=== PATIENT | female | born 1955 | race Two or more races ===

== ENCOUNTER 2018-09-07 15:50 | Inpatient (IN) | payer BC, OTHER ==
[~2018-09-07] VITALS: Ht 172.7 cm; Wt 165.1 kg
[~2018-09-07 15:50] MED LIST: IBUP-1958; TAMS-12
--- NOTE | 2018-09-07 16:35 | NUR ---
R FLANK PAIN SINCE WEDNESDAY. SENT BY PMD MARY FOR ABNORMAL LABS. AAOX4, VSS. DENIES CP, SOB, DIZZINESS, N/V OR WEAKNESS AT THIS TIME. PT SEEN & EVAL'D BY DR. HOUSER. DAUGHTER AT BS & WILL CONT TO MONITOR.
[2018-09-07 16:53] LABS: BASOPHILS % (AUTO) 0.6 % (0.0-2.0); HEMATOCRIT 37 % (33-45); HEMOGLOBIN 12.7 g/dL (11.5-14.8); LYMPHOCYTES # (AUTO) 2.2 /CMM (0.8-4.8); LYMPHOCYTES % (AUTO) 29.5 % (20.0-44.0); MEAN CORPUSCULAR HGB CONC 34 g/dl (31.0-36.0); MEAN CORPUSCULAR VOLUME 100 fL (82-100); MONOCYTES # (AUTO) 0.8 /CMM (0.1-1.30); MONOCYTES % (AUTO) 11.5 % (2.0-12.0); NEUTROPHILS # (AUTO) 3.9 /CMM (1.8-8.9); NEUTROPHILS % (AUTO) 52.4 % (43.0-81.0); PLATELET COUNT (AUTO) 132 /CMM (150-450); RED BLOOD CELL COUNT(AUTO) 3.71 MIL/uL (4.0-5.2); WHITE BLOOD COUNT (AUTO) 7.4 K/uL (4.3-11.0)
[2018-09-07 16:59] LABS: CALCIUM, SERUM 9.3 mg/dL (8.5-10.1); CREATININE 1.5 mg/dL (0.6-1.3); POTASSIUM 3.9 mmol/L (3.5-5.1)
[2018-09-07 17:05] LABS: ALBUMIN 2.1 g/dL (3.4-5.0); BILIRUBIN,DIRECT 3.1 mg/dL (0.0-0.2); BILIRUBIN,TOTAL 5.2 mg/dL (0.2-1.0); TOTAL PROTEIN, SERUM 6.1 g/dL (6.4-8.2)
[2018-09-07] MEDS ORDERED: AMLO10TA7 PO (19:16)
[2018-09-07] MEDS ORDERED: CIPR-262 PO (19:16)
[2018-09-07] MEDS ORDERED: DICL100T2 PO (19:16)
[2018-09-07] MEDS ORDERED: LOSA50TA39 PO (19:16)
[2018-09-07] MEDS ORDERED: HYDR25TA4 PO (19:16)
[2018-09-07] MEDS ORDERED: METO25TA20 PO (19:16)
[2018-09-07] MEDS ORDERED: ASPI-1169 PO (19:16)
--- NOTE | 2018-09-07 19:24 | NUR ---
TURNED IN MOVE SHEET. ROX FOR BED (1999)
--- NOTE | 2018-09-07 20:10 | NUR ---
Patient is resting comfortably in bed with eyes closed. Easily aroused. VSS. DENIES ANY DISCOMFORT AT THIS TIME & WILL CONT TO MONITOR.
--- NOTE | 2018-09-07 20:50 | NUR ---
REPORT GIVEN TO EVELYN PEARL FOR CONT OF CARE.
--- NOTE | 2018-09-07 21:15 | NUR ---
RN MS ADMISSION NOTES RECEIVED PATIENT IN FROM ER VIA [employer]. DX. ABD PAIN AND TRANSMINITIS. SENT BY HER PMD. PATIENT IS ALERT AND ORIENTED X4, VERBALLY RESPONSIVE, ABLE TO MAKE NEEDS KNOWN. FAMILY AT BEDSIDE. BREATHING EVEN AND UNLABORED. NO SOB NOTED. TOLERATING ROOM AIR. DENIES ANY PAIN OR DISCOMFORT. NO FACIAL GRIMACING. IV ON LEFT AC INTACT AND PATENT. SKIN DRY AND WARM TO TOUCH. AFEBRILE. SKIN ASSESSMENT RENDERED WITH PICTURES TAKEN AND PLACED IN CHART. ORIENTED TO THE USE OF UNIT AMENITIES. INSTRUCTED ON THE USE OF CALL LIGHT. SAFETY MEASURES IN PLACE. CALL LIGHT WITHIN REACH. WILL CONTINUE TO MONITOR.
[2018-09-07 22:00] VITALS: BP 130/54
[2018-09-07] MEDS ORDERED: ONDANSETRON HCL/PF 4 MG/2 ML VIAL IVP PRN (22:30)
[2018-09-07] MEDS ORDERED: ACETAMINOPHEN 650 MG/SUPP.RECT RC PRN (22:30)
[2018-09-07] MEDS ORDERED: NITROGLYCERIN PACKET 1 GM PACKET TOP PRN (22:30)
[2018-09-07] MEDS ORDERED: MORPHINE SULFATE INJ 2 MG/ML DISP.SYRIN IV PRN (22:30)
[2018-09-08] MEDS: IV D5/0.45 NACL 1,000 ML IV PRN ×2 (00:22→22:11)
--- NOTE | 2018-09-08 00:30 | NUR ---
RN MS NOTES DR. SPARKS HERE IN UNIT. SEEN AND EXAMINED PATIENT.
[2018-09-08 02:18] LABS: APPEARANCE,URINE CLEAR (CLEAR); BILIRUBIN,URINE 1+ (NEGATIVE); BLOOD, URINE NEGATIVE Ery/uL (NEGATIVE); COLOR,URINE DARK YELLO (YELLOW); KETONES,URINE NEGATIVE (NEGATIVE); LEUKOCYTE ESTERASE ,URINE TRACE (NEGATIVE); NITRITE, URINE NEGATIVE (NEGATIVE); PH,URINE 5.5 (5.0-8.0); PROTEIN,URINE TRACE mg/dl (NEGATIVE); UGLUCOSE NEGATIVE (NEGATIVE); UROBILINOGEN,URINE 0.2 EU/dL (0.2)
[2018-09-08 02:28] LABS: RBC,URINE 0-2 /HPF (0-2)
[2018-09-08 02:29] LABS: BACTERIA,URINE Few /HPF (None Seen); SQUAMOUS EPITHELIAL CELL,UR Few /HPF (None Seen)
--- NOTE | 2018-09-08 06:45 | NUR ---
RN MS CLOSING NOTES PATIENT RESTING IN BED. NO ACUTE CHANGES THROUGHOUT SHIFT. BREATHING EVEN AND UNLABORED. NO SOB NOTED. TOLERATING ROOM AIR. NO COMPLAINTS OF PAIN OR DISCOMFORT. NO FACIAL GRIMACING. IV INTACT AND PATENT WITH IVF INFUSING. ALL NEEDS ATTENDED TO. SAFETY MEASURES IN PLACE. CALL LIGHT WITHIN REACH. WILL ENDORSE TO ONCOMING NURSE FOR CATHI.
--- NOTE | 2018-09-08 07:30 | NUR ---
RN MS NOTES PT IN BED, AWAKE, ALERT AND ORIENTED, NO COMPLAINT OF PAIN AT THIS TIME, BREATHING PATTERN NORMAL, CALL LIGHT WITHIN REACH, IV FLUIDS INFUSING WELL, NEEDS ATTENDED.
[2018-09-08 08:00] VITALS: BP 115/54
[2018-09-08] MEDS: FAMOTIDINE/PF INJ 20 MG/2 ML VIAL IV SCH (08:35)
[2018-09-08 08:52] LABS: BASOPHILS % (AUTO) 0.7 % (0.0-2.0); EOSINOPHILS % (AUTO) 7.1 % (0.0-6.0); HEMATOCRIT 37 % (33-45); HEMOGLOBIN 12.3 g/dL (11.5-14.8); LYMPHOCYTES # (AUTO) 2.4 /CMM (0.8-4.8); LYMPHOCYTES % (AUTO) 33.6 % (20.0-44.0); MEAN CORPUSCULAR HGB CONC 34 g/dl (31.0-36.0); MEAN CORPUSCULAR VOLUME 100 fL (82-100); MONOCYTES # (AUTO) 0.7 /CMM (0.1-1.30); MONOCYTES % (AUTO) 10.1 % (2.0-12.0); NEUTROPHILS # (AUTO) 3.5 /CMM (1.8-8.9); NEUTROPHILS % (AUTO) 48.5 % (43.0-81.0); PLATELET COUNT (AUTO) 119 /CMM (150-450); RED BLOOD CELL COUNT(AUTO) 3.64 MIL/uL (4.0-5.2); WHITE BLOOD COUNT (AUTO) 7.2 K/uL (4.3-11.0)
[2018-09-08 09:16] LABS: CALCIUM, SERUM 9.5 mg/dL (8.5-10.1); CREATININE 1.4 mg/dL (0.6-1.3); MAGNESIUM 1.5 mg/dL (1.8-2.4); POTASSIUM 4.3 mmol/L (3.5-5.1); TOTAL PROTEIN, SERUM 5.8 g/dL (6.4-8.2)
[2018-09-08 09:20] LABS: THYROID STIMULATING HORMONE 3.624 uIU/mL (0.358-3.74)
[2018-09-08] MEDS: Magnesium 1GM/D5W 100ML PREMIX 100 ML IV SCH ×2 (11:28→12:42)
--- NOTE | 2018-09-08 13:00 | NUR ---
RN MS NOTES PT IN BED, AWAKE, ALERT AND ORIENTED, NO COMPLAINT AT THIS TIME, NOT IN DISTRESS, IV FLUIDS INFUSING WELL, CALL LIGHT WITHIN REACH, NEEDS ATTENDED.
[2018-09-08 16:00] VITALS: BP 116/48
--- NOTE | 2018-09-08 18:40 | NUR ---
RN MS NOTES PT IN BED, AWAKE, ALERT AND ORIENTED, NO COMPLAINT OF PAIN AT THIS TIME, NOT IN DISTRESS, IV FLUIDS INFUSING WELL, TOLERATES CURRENT DIET, CALL LIGHT WITHIN REACH, ALL NEEDS ATTENDED.
--- NOTE | 2018-09-08 19:10 | NUR ---
MS/RN NOTES RECEIVED PT. SITTING UP IN BED. PT. IS AWAKE, ALERT AND ORIENTED X4. BREATHING EVEN AND UNLABORED ON ROOM AIR. NO SOB, RESPIRATORY DISTRESS OR COMPLAINTS OF PAIN NOTED AT THIS TIME. PT. WITH LEFT AC 20 GAUGE PERIPHERAL IV PRESENT, PATENT AND INTACT ADMINISTERING TO PT. D5 1/2 NS 70 ML/HR. BED LOCKED AND IN LOWEST POSITION, SIDE RAILS UP X2, CALL LIGHT WITHIN REACH, WILL CONTINUE TO MONITOR.
[2018-09-08 22:08] VITALS: BP 109/65
[2018-09-09 06:40] LABS: CALCIUM, SERUM 9.1 mg/dL (8.5-10.1); CREATININE 1.2 mg/dL (0.6-1.3); MAGNESIUM 1.7 mg/dL (1.8-2.4); POTASSIUM 3.8 mmol/L (3.5-5.1)
--- NOTE | 2018-09-09 07:00 | NUR ---
MS/RN NOTES PT. IS LYING IN BED. PT. IS AWAKE, ALERT AND ORIENTED X4. BREATHING EVEN AND UNLABORED ON ROOM AIR. NO SOB, RESPIRATORY DISTRESS OR COMPLAINTS OF PAIN NOTED AT THIS TIME. PT. WITH RIGHT FOREARM 18 GAUGE PERIPHERAL IV PRESENT, PATENT AND INTACT ADMINISTERING TO PT. D5 1/2 NS 70 ML/HR. ALL PT. NEEDS MET. BED LOCKED AND IN LOWEST POSITION, SIDE RAILS UP X2, CALL LIGHT WITHIN REACH, WILL ENDORSE TO DAYSHIFT NURSE FOR CONTINUITY OF CARE.
--- NOTE | 2018-09-09 07:37 | NUR ---
MS RN OPENING NOTES RECEIVED PT ASLEEP IN BED, EASILY AROUSED. A/O X4. TOLERATING RA, WITH NO ACUTE RESPIRATORY DISTRESS NOTED. PT DENIES PAIN OR ANY DISCOMFORT AT THIS TIME. PT CONCERNED OF SEEING THE DOCTOR TODAY TO KNOW WHAT THE PLAN IS. PT STATED SHE WAS EXPECTING DR VERDIN YESTERDAY BUT DIDN'T COME; ALSO, PT EXPECTING FOR A GI CONSULT. RN TO FOLLOW UP AND WILL UPDATE PT. IVF D5 1/2NS AT 70ML/HR TO RFA G18, INTACT AND FLUID INFUSING WELL. PT KEPT COMFORTABLE. PT'S BED IN LOWEST, LOCKED POSITION WITH SRX2. CALL LIGHT AND FLUID KEPT WITHIN REACH. WILL CONTINUE PLAN OF CARE.
[2018-09-09 08:00] VITALS: BP 120/59
[2018-09-09] MEDS: FAMOTIDINE/PF INJ 20 MG/2 ML VIAL IV SCH (08:34)
--- NOTE | 2018-09-09 11:18 | NUR ---
WOUND CARE CONSULT: PT REFUSES SKIN ASSESSMENT AND STATES IS AMBULATORY AND CONTINENT. WILL SEE PRN.
[2018-09-09] MEDS: Magnesium 1GM/D5W 100ML PREMIX 100 ML IV SCH ×2 (11:29→12:43)
[2018-09-09] MEDS ORDERED: Z GUARD REMEDY 2 OZ OINT TP PRN (11:30)
[2018-09-09 15:55] VITALS: BP 126/62
--- NOTE | 2018-09-09 16:43 | NUR ---
MS RESEARCH ELECTRICIAN NOTES PT TO DISCHARGE HOME. PT'S SISTER PRESENT AT BEDSIDE BY THE TIME OF DISCHARGE. PT TOLERATING RA, WITH NO ACUTE RESPIRATORY DISTRESS NOTED. PT DENIES ANY PAIN OR ANY DISCOMFORT. ALL NEEDS AND CARE PROVIDED. PT CLAIMED HAS INTACT SKIN AND REFUSED TO ASSESSED SKIN. NO PICTURES TAKEN OR FILED IN THE CHART. PIV TO RFA REMOVED, APPLIED DRY DRESSING. DISCHARGE INSTRUCTIONS AND INVENTORY LIST SIGNED BY PT HERSELF, ALL BELONGINGS WITH THE PT. PT AMBULATORY, PREFERS TO WALK BY HERSELF, ACCOMPANIED BY SISTER AND ESCORTED RAILROAD CROSSING PROTECTION MAINTAINER TO THE LOBBY. VS STABLE AND RECORDED. PT LEFT THE UNIT AT 1630. CN/CRUZITO AND /BIANKA AWARE OF DISCHARGE.
== END 2018-09-09 16:30 | disposition home or self-care (01) | DRG 432 ==
LOC: ER 15:50 → MED 21:01
PROVIDERS: ADMIT Internal Medicine; ATTEND Internal Medicine
DX: K74.60 Unspecified cirrhosis of liver (principal); E43 Unspecified severe protein-calorie malnutrition; N17.0 Acute kidney failure with tubular necrosis; D68.9 Coagulation defect, unspecified; N39.0 Urinary tract infection, site not specified; R18.8 Other ascites; Z68.43 Body mass index [BMI] 50.0-59.9, adult; D69.6 Thrombocytopenia, unspecified; K57.30 Diverticulosis of large intestine without perforation or abscess without bleeding; N20.0 Calculus of kidney; Z90.49 Acquired absence of other specified parts of digestive tract; Z87.891 Personal history of nicotine dependence; Z87.442 Personal history of urinary calculi; Z79.899 Other long term (current) drug therapy; Z79.82 Long term (current) use of aspirin; E78.5 Hyperlipidemia, unspecified; I10 Essential (primary) hypertension; Z98.890 Other specified postprocedural states; E66.01 Morbid (severe) obesity due to excess calories; Z79.1 Long term (current) use of non-steroidal anti-inflammatories (NSAID)
CPT/HCPCS: 36415; 71045-TC; 76700-TC; 80048-TC; 80053-TC; 80061-TC; 80076-TC; 81000-TC; 82140-TC; 83690-TC; 83735-TC; 84100-TC; 84443-TC; 85025-TC; 85730-TC; 86704; 86705; 86706; 86803; 87081-TC; 87086-TC; G0378; J3475; J3490

== ENCOUNTER 2022-10-19 21:48 | Emergency (ER) | payer BC, OTHER ==
[~2022-10-19] VITALS: Ht 172.7 cm; Wt 167.8 kg
[~2022-10-19 21:48] MED LIST changes: +AMLO-213 PO; +ASPI-1169 PO; +CEPH500T PO; -IBUP-1958; +METO25TA20 PO; +SULF1TAB48 PO; -TAMS-12
[2022-10-20] MEDS ORDERED: CLIN300C12 PO
[2022-10-20] MEDS ORDERED: SULF1TAB48 PO
[2022-10-20 00:34] VITALS: BP 199/81; TEMP 97.9; O2SAT 97
== END 2022-10-20 00:34 | disposition home or self-care (01) ==
LOC: ER 21:49
DX: I83.028 Varicose veins of left lower extremity with ulcer other part of lower leg (principal); L03.116 Cellulitis of left lower limb; Z90.49 Acquired absence of other specified parts of digestive tract; Z87.442 Personal history of urinary calculi; Z79.899 Other long term (current) drug therapy

== ENCOUNTER 2022-11-06 08:14 | Outpatient (CLI) | payer BC, OTHER ==
[~2022-11-06 08:14] MED LIST changes: +CLIN300C12 PO; +LIDOCAINE SOLN 4% 50 ML BOTTLE ONE
[2022-11-06] MEDS ORDERED: HYDROCORTISONE 1% CREAM 28.35 GM TUBE TP ONE (08:34)
== END 2022-11-06 23:59 | disposition home or self-care (01) ==
LOC: WOU 08:14
PROVIDERS: ATTEND Podiatrist Foot & Ankle Surgery
DX: I87.2 Venous insufficiency (chronic) (peripheral) (principal); L97.223 Non-pressure chronic ulcer of left calf with necrosis of muscle; E66.01 Morbid (severe) obesity due to excess calories; Z68.42 Body mass index [BMI] 45.0-49.9, adult; R60.1 Generalized edema
CPT/HCPCS: 11043; A6197; A6207

== ENCOUNTER 2022-11-20 08:02 | Outpatient (CLI) | payer BC, OTHER ==
[~2022-11-20 08:02] MED LIST changes: +COLLAGENASE 5 GM TUBE UD TP ONE; +HYDROCORTISONE 1% CREAM 28.35 GM TUBE TP ONE; -LIDOCAINE SOLN 4% 50 ML BOTTLE ONE
== END 2022-11-20 23:59 | disposition home or self-care (01) ==
LOC: WOU 08:02
PROVIDERS: ATTEND Podiatrist Foot & Ankle Surgery
DX: I87.2 Venous insufficiency (chronic) (peripheral) (principal); L97.223 Non-pressure chronic ulcer of left calf with necrosis of muscle; E66.01 Morbid (severe) obesity due to excess calories; Z68.42 Body mass index [BMI] 45.0-49.9, adult; I10 Essential (primary) hypertension; R60.1 Generalized edema
CPT/HCPCS: 11043; A6452

== ENCOUNTER 2022-12-11 08:25 | Outpatient (CLI) | payer BC, OTHER ==
[~2022-12-11 08:25] MED LIST changes: -COLLAGENASE 5 GM TUBE UD TP ONE; -HYDROCORTISONE 1% CREAM 28.35 GM TUBE TP ONE
== END 2022-12-11 23:59 | disposition home or self-care (01) ==
LOC: WOU 08:25
PROVIDERS: ATTEND Podiatrist Foot & Ankle Surgery
DX: I87.2 Venous insufficiency (chronic) (peripheral) (principal); L97.222 Non-pressure chronic ulcer of left calf with fat layer exposed; E66.01 Morbid (severe) obesity due to excess calories; Z68.42 Body mass index [BMI] 45.0-49.9, adult; R60.1 Generalized edema; I10 Essential (primary) hypertension
CPT/HCPCS: 11042; A6454

== ENCOUNTER 2023-03-15 17:47 | Emergency (ER) | payer BC, OTHER ==
[~2023-03-15] VITALS: Ht 170.2 cm; Wt 155.6 kg
[2023-03-15] MEDS ORDERED: BENZONATATE 100 MG CAPSULE PO PRN (20:00)
[2023-03-15] MEDS ORDERED: BENZONATATE 100 MG CAPSULE PO ONE (20:01)
[2023-03-15] MEDS ORDERED: METH4TAB17 PO (21:04)
[2023-03-15] MEDS ORDERED: ALBU8.5H8 INH (21:04)
[2023-03-15] MEDS ORDERED: BENZ1LOZ58 PO (21:04)
[2023-03-15] MEDS ORDERED: BENZ-13 PO (21:04)
[2023-03-15] MEDS ORDERED: IBUP-1955 PO (21:04)
[2023-03-15 22:16] VITALS: BP 162/74; TEMP 98.4; O2SAT 96
== END 2023-03-15 22:16 | disposition home or self-care (01) ==
LOC: ER 17:47
DX: J06.9 Acute upper respiratory infection, unspecified (principal); Z79.82 Long term (current) use of aspirin; Z90.49 Acquired absence of other specified parts of digestive tract; Z79.899 Other long term (current) drug therapy; Z20.822 Contact with and (suspected) exposure to COVID-19
CPT/HCPCS: 71045-TC

== ENCOUNTER 2024-05-20 15:37 | Inpatient (IN) | payer BC ==
[~2024-05-20] VITALS: Ht 172.7 cm; Wt 164.2 kg
[~2024-05-20 15:37] MED LIST changes: +ALBU8.5H8 INH; +BENZ-13 PO; +BENZ1LOZ58 PO; +IBUP-1955 PO; +METH4TAB17 PO
[2024-05-20 16:25] LABS: BASOPHILS % (AUTO) 0.4 % (0.0-2.0); EOSINOPHILS # (AUTO) 0.2 K/uL (0.0-0.7); EOSINOPHILS % (AUTO) 4.4 % (0.0-6.0); HEMATOCRIT 41 % (33-45); HEMOGLOBIN 14.5 g/dL (11.5-14.8); LYMPHOCYTES # (AUTO) 1.2 K/uL (0.8-4.8); LYMPHOCYTES % (AUTO) 21.8 % (20.0-44.0); MEAN CORPUSCULAR HEMOGLOBIN 32 PG (26.0-33.0); MEAN CORPUSCULAR HGB CONC 35 g/dl (31.0-36.0); MEAN CORPUSCULAR VOLUME 91 fL (82-100); MONOCYTES # (AUTO) 0.4 K/uL (0.1-1.30); MONOCYTES % (AUTO) 7.3 % (2.0-12.0); NEUTROPHILS # (AUTO) 3.6 K/uL (1.8-8.9); NEUTROPHILS % (AUTO) 66.1 % (43.0-81.0); PLATELET COUNT (AUTO) 132 K/uL (150-450); RED CELL DISTRIBUTION WIDTH 13.8 % (11.5-15.0); WHITE BLOOD COUNT (AUTO) 5.5 K/uL (4.3-11.0)
[2024-05-20 16:35] LABS: CALCIUM, SERUM 9.7 mg/dL (8.5-10.1); CARBON DIOXIDE 25 mmol/L (21-32); CHLORIDE 109 mmol/L (98-107); CREATININE 0.8 mg/dL (0.6-1.3); GLUCOSE 233 mg/dL (74-106); POTASSIUM 4.2 mmol/L (3.5-5.1); SODIUM SERUM 143 mmol/L (136-145); UREA NITROGEN, BLOOD 13 mg/dL (7-18)
[2024-05-20 16:49] LABS: ALANINE AMINOTRANSFERASE 23 U/L (12-78); ALBUMIN 3.5 g/dL (3.4-5.0); ALKALINE PHOSPHATASE 99 U/L (46-116); ASPARTATE AMINOTRANSFERASE 27 U/L (15-37); BILIRUBIN,DIRECT 0.3 mg/dL (0.0-0.2); BILIRUBIN,TOTAL 1.2 mg/dL (0.2-1.0); NT-PRO BNP 163 pg/mL (0-125); TOTAL PROTEIN, SERUM 6.9 g/dL (6.4-8.2)
[2024-05-20] MEDS ORDERED: BENZOIN COMPOUND TINCT 60 ML BOTTLE ONE (17:33)
[2024-05-20] MEDS ORDERED: ACETAMINOPHEN 325 MG TABLET ONE (17:58)
[2024-05-20] MEDS ORDERED: ASPIRIN 81 MG TAB.CHEW ONE (17:58)
[2024-05-20] MEDS ORDERED: ENALAPRILAT INJ (1.25 MG/ML) 1.25 MG/ML VIAL IV ONE (17:58)
[2024-05-20] MEDS: ASPIRIN 81 MG TAB.CHEW PO ONE (18:06)
[2024-05-20] MEDS: ACETAMINOPHEN 325 MG TABLET PO ONE (18:06)
[2024-05-20] MEDS: ENALAPRILAT INJ (1.25 MG/ML) 1.25 MG/ML VIAL IV ONE (18:07)
[2024-05-20] MEDS ORDERED: hydrALAZINE HCL IV 20 MG VIAL ONE (18:50)
[2024-05-20] MEDS: hydrALAZINE HCL IV 20 MG VIAL IV ONE (19:05)
[2024-05-20] MEDS ORDERED: Z GUARD REMEDY 4 OZ OINT TP PRN (21:00)
[2024-05-20] MEDS ORDERED: ONDANSETRON HCL/PF 4 MG/2 ML VIAL IVP PRN (21:00)
[2024-05-20] MEDS ORDERED: MAG HYDROX/AL HYDROX/SIMETH 30 ML UDC PO PRN (21:00)
[2024-05-20] MEDS ORDERED: ZOLPIDEM TARTRATE 5 MG TABLET PO PRN (21:00)
[2024-05-20] MEDS: ALPRAZOLAM 1 MG TABLET PO ONE (21:43)
[2024-05-20] MEDS: ENOXAPARIN SODIUM 40 MG/0.4 ML DISP.SYRIN SQ SCH (21:43)
[2024-05-20] MEDS: AMLODIPINE BESYLATE 5 MG TABLET PO SCH (21:49)
[2024-05-20 21:50] VITALS: BP 195/82; TEMP 98; O2SAT 97
[2024-05-20 23:00] VITALS: BP 127/54; O2SAT 99
[2024-05-21] VITALS: BP 172/61; TEMP 98.1; O2SAT 98
[2024-05-21] MEDS: hydrALAZINE HCL IV 20 MG VIAL IV PRN (00:31)
[2024-05-21 04:00] VITALS: BP 140/70; TEMP 98; O2SAT 99
[2024-05-21 07:20] LABS: BASOPHILS % (AUTO) 0.4 % (0.0-2.0); EOSINOPHILS # (AUTO) 0.2 K/uL (0.0-0.7); EOSINOPHILS % (AUTO) 3.9 % (0.0-6.0); HEMATOCRIT 39 % (33-45); HEMOGLOBIN 13.8 g/dL (11.5-14.8); LYMPHOCYTES # (AUTO) 1.2 K/uL (0.8-4.8); LYMPHOCYTES % (AUTO) 22.4 % (20.0-44.0); MEAN CORPUSCULAR HEMOGLOBIN 32 PG (26.0-33.0); MEAN CORPUSCULAR HGB CONC 35 g/dl (31.0-36.0); MEAN CORPUSCULAR VOLUME 91 fL (82-100); MONOCYTES # (AUTO) 0.4 K/uL (0.1-1.30); MONOCYTES % (AUTO) 6.7 % (2.0-12.0); NEUTROPHILS # (AUTO) 3.7 K/uL (1.8-8.9); NEUTROPHILS % (AUTO) 66.6 % (43.0-81.0); PLATELET COUNT (AUTO) 122 K/uL (150-450); RED CELL DISTRIBUTION WIDTH 13.9 % (11.5-15.0); WHITE BLOOD COUNT (AUTO) 5.5 K/uL (4.3-11.0)
[2024-05-21 07:31] LABS: CALCIUM, SERUM 9.5 mg/dL (8.5-10.1); CREATININE 0.6 mg/dL (0.6-1.3); MAGNESIUM 2.2 mg/dL (1.8-2.4); PHOSPHORUS 2.4 mg/dL (2.5-4.9); POTASSIUM 3.9 mmol/L (3.5-5.1)
[2024-05-21 08:00] VITALS: BP 153/82; TEMP 97.6; O2SAT 99
[2024-05-21] MEDS: ACETAMINOPHEN 325 MG TABLET PO PRN (08:09)
[2024-05-21] MEDS: VALSARTAN 80 MG TABLET PO SCH (10:17)
[2024-05-21 12:46] VITALS: BP 135/100; TEMP 97.6; O2SAT 99
[2024-05-21] MEDS: K PHOS NEUTRAL 250 MG TABLET PO ONE (15:55)
[2024-05-21 17:11] VITALS: BP 143/100; TEMP 97.7; O2SAT 99
[2024-05-21] MEDS: IBUPROFEN 400 MG TABLET PO PRN (17:14)
[2024-05-21 20:00] VITALS: BP 187/68; TEMP 98.2; O2SAT 95
[2024-05-22] VITALS: BP 164/62; TEMP 98.4; O2SAT 95
[2024-05-22 04:00] VITALS: BP 158/63; TEMP 98.2; O2SAT 95
[2024-05-22 07:23] LABS: BASOPHILS % (AUTO) 0.5 % (0.0-2.0); EOSINOPHILS # (AUTO) 0.4 K/uL (0.0-0.7); EOSINOPHILS % (AUTO) 6.5 % (0.0-6.0); HEMATOCRIT 40 % (33-45); LYMPHOCYTES # (AUTO) 1.5 K/uL (0.8-4.8); LYMPHOCYTES % (AUTO) 26.5 % (20.0-44.0); MEAN CORPUSCULAR HEMOGLOBIN 33 PG (26.0-33.0); MEAN CORPUSCULAR HGB CONC 36 g/dl (31.0-36.0); MEAN CORPUSCULAR VOLUME 93 fL (82-100); MONOCYTES # (AUTO) 0.4 K/uL (0.1-1.30); MONOCYTES % (AUTO) 6.7 % (2.0-12.0); NEUTROPHILS # (AUTO) 3.4 K/uL (1.8-8.9); NEUTROPHILS % (AUTO) 59.8 % (43.0-81.0); PLATELET COUNT (AUTO) 127 K/uL (150-450); RED BLOOD CELL COUNT(AUTO) 4.27 MIL/uL (4.0-5.2); RED CELL DISTRIBUTION WIDTH 14.1 % (11.5-15.0); WHITE BLOOD COUNT (AUTO) 5.7 K/uL (4.3-11.0)
[2024-05-22 07:35] LABS: ALBUMIN 3.1 g/dL (3.4-5.0); BILIRUBIN,TOTAL 1.7 mg/dL (0.2-1.0); CALCIUM, SERUM 9.1 mg/dL (8.5-10.1); CREATININE 0.8 mg/dL (0.6-1.3); PHOSPHORUS 3.1 mg/dL (2.5-4.9); POTASSIUM 3.7 mmol/L (3.5-5.1); TOTAL PROTEIN, SERUM 6.2 g/dL (6.4-8.2)
[2024-05-22 08:00] VITALS: BP 147/68; TEMP 97.9; O2SAT 94
[2024-05-22] MEDS: hydrALAZINE HCL 50 MG TABLET PO SCH ×2 (09:33→16:45)
[2024-05-22] MEDS: ALPRAZOLAM 0.25 MG TABLET PO ONE (12:01)
[2024-05-22] MEDS: NITROGLYCERIN 0.4 MG/TAB BOTTLE SL PRN (13:55)
[2024-05-22] MEDS: FUROSEMIDE 40 MG/4 ML VIAL IV SCH (13:56)
[2024-05-22 16:00] VITALS: BP 129/38; TEMP 97.5; O2SAT 94
[2024-05-22 20:00] VITALS: BP 136/45; TEMP 97.7; O2SAT 95
[2024-05-23] VITALS: BP 132/51; TEMP 98.2; O2SAT 95
[2024-05-23 04:00] VITALS: BP 136/58; TEMP 98.2; O2SAT 95
[2024-05-23 08:00] VITALS: BP 157/62; TEMP 98.1; O2SAT 97
[2024-05-23 08:32] LABS: CALCIUM, SERUM 9.5 mg/dL (8.5-10.1); CREATININE 0.7 mg/dL (0.6-1.3); POTASSIUM 3.5 mmol/L (3.5-5.1)
[2024-05-23 12:00] VITALS: BP 113/62; TEMP 97.5; O2SAT 97
[2024-05-23 16:00] VITALS: BP 133/60; TEMP 98.1; O2SAT 95
[2024-05-23] MEDS ORDERED: APIXABAN 5 MG TABLET PO SCH (19:00)
[2024-05-23] MEDS: APIXABAN 5 MG TABLET PO SCH (19:30)
[2024-05-23] MEDS ORDERED: MORPHINE SULFATE INJ 2 MG/ML DISP.SYRIN IV PRN (19:30)
[2024-05-23 20:00] VITALS: BP 114/43; TEMP 97.7; O2SAT 97
[2024-05-24] VITALS: BP 127/46; TEMP 97.7; O2SAT 97
[2024-05-24 04:00] VITALS: BP 139/55; TEMP 97.7; O2SAT 96
[2024-05-24 07:36] LABS: CALCIUM, SERUM 9.6 mg/dL (8.5-10.1); CREATININE 0.9 mg/dL (0.6-1.3); POTASSIUM 3.9 mmol/L (3.5-5.1)
[2024-05-24 08:00] VITALS: BP 118/55; TEMP 97.8; O2SAT 96
[2024-05-24 12:00] VITALS: BP 126/92; TEMP 98; O2SAT 97
[2024-05-24] MEDS ORDERED: AMLO-212 PO (12:51)
[2024-05-24] MEDS ORDERED: VALS80TA31 PO (12:51)
[2024-05-24] MEDS ORDERED: APIX5TAB PO (12:51)
[2024-05-24 16:00] VITALS: BP 105/42; TEMP 97.6; O2SAT 97
[2024-05-24 20:00] VITALS: BP 121/89; TEMP 98.2; O2SAT 97
[2024-05-25] VITALS: BP 128/65; TEMP 98.2; O2SAT 95
[2024-05-25 04:00] VITALS: BP 109/54; TEMP 98.2; O2SAT 97
[2024-05-25 07:47] LABS: CALCIUM, SERUM 9.8 mg/dL (8.5-10.1); CREATININE 0.8 mg/dL (0.6-1.3)
[2024-05-25 08:00] VITALS: BP 131/60; TEMP 97.9; O2SAT 98
[2024-05-25 12:00] VITALS: BP 117/48; TEMP 97.9; O2SAT 97
[2024-05-25 12:52] VITALS: BP 117/48
[2024-05-25] MEDS ORDERED: PANT40TA49 PO (14:12)
[2024-05-25 14:45] VITALS: TEMP 97.9
== END 2024-05-25 14:20 | disposition home or self-care (01) | DRG 175 ==
LOC: ER 15:41 → TELE 18:05 → TRANSITION 20:08 → TELE1 20:39 → TELE-TD 21:15 → TELE1 05-21 13:41 → MEDSG1 05-22 10:45 → TELE1 05-22 15:31
PROVIDERS: ADMIT Nurse Practitioner Acute Care; ATTEND Nurse Practitioner Acute Care
DX: I26.99 Other pulmonary embolism without acute cor pulmonale (principal); J96.01 Acute respiratory failure with hypoxia; N13.2 Hydronephrosis with renal and ureteral calculous obstruction; I11.0 Hypertensive heart disease with heart failure; I50.9 Heart failure, unspecified; F41.9 Anxiety disorder, unspecified; Z87.442 Personal history of urinary calculi; Z96.0 Presence of urogenital implants; Z90.49 Acquired absence of other specified parts of digestive tract; E66.01 Morbid (severe) obesity due to excess calories; G47.33 Obstructive sleep apnea (adult) (pediatric); B96.89 Other specified bacterial agents as the cause of diseases classified elsewhere; E80.6 Other disorders of bilirubin metabolism; F41.0 Panic disorder [episodic paroxysmal anxiety]; Z79.01 Long term (current) use of anticoagulants; Z79.899 Other long term (current) drug therapy
CPT/HCPCS: 36415; 71045-TC; 76700-TC; 78582; 80048-TC; 80053-TC; 80061-TC; 80076-TC; 83735-TC; 83880; 84100-TC; 84484-TC; 85025-TC; 93307-TC; 93970-TC; 97116-TC; 97530-TC; A9540; A9567; G0378; J0360; J1650; J1940; J3490